=== PATIENT | female | born 1985 | race Caucasian/White ===

== ENCOUNTER 2020-12-16 10:57 | Emergency (ER) | payer MEDICAID, SELFPAY ==
[2020-12-16 10:58] VITALS: BP 110/83; PULSE 76; RESP 18; TEMP 36.6; O2SAT 97; BMI 30.2
--- NOTE | 2020-12-16 11:45 | EDS_ITS ---
HPI History of Present Illness Chief Complaint: Substance Abuse Informant: patient Narrative Narrative: Patient is a 35-year-old female presenting requesting detox from heroin. She states she uses approximately 0.5 g of heroin per day. She states she mostly snorts heroin but occasionally injects. She states her last detox was approximately 6 years ago. She states she was sober for 5 years after her detox and started using approximately one year ago. She admits to rare alcohol use. Denies other drug use. Prior similar symptoms: Yes Recent Illness/Hospitalization: No PFSH [facility] Medical History (Updated 12/16/20 @ 12:[address] Antoinette Christina MD) Seizures Substance abuse Home Medications cyclobenzaprine [Flexeril] 10 mg PO QHS 12/16/20 [History Last Taken Unknown] gabapentin 800 mg PO TID 12/16/20 [History Last Taken Unknown] levetiracetam [Keppra] 500 mg PO BID 12/16/20 [History Last Taken Unknown] melatonin 10 mg PO QHS 12/16/20 [History Last Taken Unknown] Allergy/AdvReac Type Severity Reaction Status Date / Time bupropion [From Wellbutrin] AdvReac Other Verified 12/16/20 11:00 Social History Smoking Status: Current every day smoker tobacco type: e-cigarettes ROS ROS ED Constitutional Constitutional ED: Denies fever(s) Eyes Eyes: Denies change in vision ENT ENT ED: Denies rhinorrhea or sore throat Cardiovascular Cardiovascular: Denies chest pain or palpitations Respiratory/Chest Respiratory/Chest: Denies cough or dyspnea Gastrointestinal Gastrointestinal: Denies abdominal pain, diarrhea, nausea or vomiting Genitourinary Genitourinary ED: Denies dysuria Musculoskeletal Musculoskeletal: Denies myalgias Integumentary Denies rash Neurologic Neurologic: Denies headache(s) Psychiatric Psychiatric: Denies suicidal thoughts EXAM Physical Exam Const Vital Signs: 12/16/20 10:58 12/16/20 12:14 Temperature 98 F 97.8 F Temperature Source Temporal Temporal Pulse Rate 76 61 Respiratory Rate 18 16 Blood Pressure 110/83 H 100/67 Blood Pressure Mean 92 78 Pulse Ox 97 100 Oxygen Delivery Method Room Air Room Air Positive well nourished and well developed General Appearance ED: well developed HEENT Reports normocephalic and head/scalp atraumatic Eyes PERRL and EOMs intact bilaterally Neck supple General: Negative for tenderness Chest Wall inspection of chest normal Resp normal respiratory effort and clear to auscultation bilaterally Cardio regular rate and regular rhythm GI non-tender and non-distended Palpation: soft; Negative for guarding or rebound tenderness present no CVA tenderness Extremity normal to inspection Neuro oriented x3 Sensorium / Orientation: alert Psych mental status grossly normal MDM MDM MDM Narrative Medical decision making narrative: Labs are pending. Discussed with hospitalist for admission. Lab Data Labs: Laboratory Results - last 24 hr 12/16/20 11:45 Ur Drug Screen Comment Discharge Plan Dx/Rx/DC Orders Clinical Impression: Opiate dependence Disposition Disposition: Acute Care Hospital [facility]
[2020-12-16 12:14] VITALS: BP 100/67; PULSE 61; RESP 16; TEMP 36.6; O2SAT 100
--- NOTE | 2020-12-16 12:18 | NURSING ---
[facility]
[2020-12-16 12:25] LABS: Amphetamine Urine VISTA NEGATIVE (<1000 ng/mL); Barbiturate Urine VISTA NEGATIVE (< 200 ng/mL); Benzodiazepine Urine VISTA NEGATIVE (< 200 ng/mL); Cocaine Urine VISTA NEGATIVE (< 300 ng/mL); Ecstacy Urine VISTA NEGATIVE (< 500 ng/mL); Methadone Urine VISTA NEGATIVE (< 300 ng/mL); PCP Urine VISTA NEGATIVE (< 25 ng/mL); THC Urine VISTA NEGATIVE (< 50 ng/mL); Vista UDS pH Range 5
[2020-12-16 12:27] LABS: Internal QC Validated? YES +Cl - CLEAR BKGD; Pregnancy, Serum, hCG Quali. NEGATIVE Negative
[2020-12-16 12:36] LABS: ALB/GLOB Ratio 0.8 RATIO (0.9-2.4); AST(SGOT) 18 U/L (15-37); Alanine Aminotransfer ALT/SGPT 21 U/L (13-56); Albumin, Serum 3.7 g/dL (3.2-5.0); Alkaline Phosphatase 105 U/L (45-117); Anion Gap 6 (5-15); BUN 19 mg/dL (7-18); BUN/Creat Ratio 23.4 RATIO (10-20); Calcium,Total 9.4 mg/dL (8.5-10.1); Chloride 103 mmol/L (98-107); Creatinine, Serum 0.81 mg/dL (0.55-1.02); EST Glomerular Filtration Rate 84 mL/min (>60); Est Glom Filt Rate - Afr Amer 102 mL/min (>60); Estimated Creatinine Clearance 71.76 ml/min; Globulin 4.5 g/dL (2.2-4.2); Glucose 94 mg/dL (74-106); Potassium 3.7 mmol/L (3.5-5.1); Protein, Total 8.2 g/dL (6.4-8.2); Sodium Level 139 mmol/L (136-145)
[2020-12-16 12:55] LABS: Alcohol, Blood (Medical)-Serum < 3.0 mg/dL
--- NOTE | 2020-12-16 16:13 | CM.ED ---
STEPHEN Note Referral Source: [facility] patient Referral Reason: Detox STEPHEN met with patient. She said that she came to the ED for detox and understands the rules about no visitors and personal items being locked up and is ok with that. Patient said that her drug of choice is heroin or whatever they are selling. Patient reports use of 1/2 gram a day. Patient said that last night at midnight was her last use. Patient said that she does not recall coming home. Patient said that she was sober for 6 years and then did outpatient AOD treatment. Patient is not linked with outpatient AOD Treatment. STEPHEN [facility] [employer]. Aylin, solar[employer]renewable [employer] sales, inquired about patient detox options, which is the same level of care, at other settings due to the wait she will be experiencing in the ED due to ED surge. STEPHEN called [employer] at [place] and spoke to Zeyad. They can not state if they had beds but stated based on patient's presentation she would be appropriate. STEPHEN faxed referral. STEPHEN called [facility] and made referral. Staff from [facility] will call this credit underwriter back. STEPHEN spoke to patient. Patient initially said I called someone and that she talked to 3 different people and wanted to be at [facility] for detox. Patient said that she paid someone $40 to bring me here. Patient said that she took off work for detox. instructional interventionist Stacey spoke to patient. Patient agreed to transfer to another facility for detox. STEPHEN spoke to Juana, chief marketing officer, at [facility]. Juana said that generally someone will drive patient (either patient or family) to program but she may be able to come by ambullette or ambulance.Juana then spoke to patient. Patient said that she had her last seizure in October 2020 in which she went to the hospital. Patient is not taking meds. Previously saw a neurologist. Juana, after speaking to the patient, said that patient is not appropriate for theeir program. She recommended [facility] or [facility]. [facility] Juana called this credit underwriter back and left voice mail. STEPHEN called Juana back and advised that patient stated that she did not want to leave [facility]. STEPHEN updated SW Lead Lyn Cantrell. She recommended calling the Treatment Navigator. [employer] said that if the detox is [facility] will pay for transport. STEPHEN called [employer] at [facility]. She recommended that this credit underwriter call [facility] [place] STEPHEN called and spoke to Claribel at [facility]. She advised to fax referral and then she would call patient. STEPHEN updated patient that [facility] will be calling her. Fax number for [facility] [phone] Plan: Detox [facility]na [facility]
[2020-12-16 17:00] VITALS: BP 102/67; PULSE 61; RESP 16; O2SAT 98
--- NOTE | 2020-12-16 19:12 | ED.RN ---
PT IS BEING TRANSFERRED TO [facility].
--- NOTE | 2020-12-16 19:27 | CM.ED ---
SW Note Per bellows charger assembler patient did interview with [facility]. STEPHEN spoke to Claribel at [facility]. Patient approved. They will have admission nurse contact this blog writer. STEPHEN spoke to Emily Wilcox at [facility]. Emily said that they have their own transport service. She will check with transport and call this blog writer back. Emily called back and advised their transport will be there at 9:30-10:00pm. Emily said that they do not have accepting MD but just note [facility]. Emily said that no RN to RN is needed if all documentation is sent with patient. She said that if RN at the center has any issues she will call the nurse. STEPHEN updated RN, Airfield Manager and MD. STEPHEN updated patient that transportation will be here at 9:30-10:00pm. SW was called by Liss Hauser who stated that she is with [facility]. She said that she be driving an van or [employer]. SW related covid was negative. She requested that paperwork/documentation. STEPHEN updated MD that patient is going by private vehicle. No concerns voiced. Transfer form completed but as [facility] has no accepting MD that was left blank. Also supervisor kennel noted that patient is going by private vehicle. Plan: [facility] detox Kenna [facility]IG[facility]
[2020-12-16 20:31] VITALS: BP 119/74; PULSE 63; RESP 16; O2SAT 99
--- NOTE | 2020-12-16 20:31 | CM.ED ---
SW Note STEPHEN called [employer] at [facility] and advised her that patient will be going to [place] for detox. Plan: [place] for detox Kenna BARRIGA
== END 2020-12-16 22:39 | disposition short-term general hospital (02) ==
PROVIDERS: Emergency Provider Emergency Medicine; Referring Provider Internal Medicine; Visit Provider Internal Medicine
DX: F11.20 Opioid dependence, uncomplicated (principal); F17.290 Nicotine dependence, other tobacco product, uncomplicated; R56.9 Unspecified convulsions; Z79.899 Other long term (current) drug therapy
CPT/HCPCS: 80053; 80307; 82077; 84703; 87426; 99285